=== PATIENT | male | born 1990 | race Caucasian/White ===

== ENCOUNTER → 2021-05-22 12:20 | Outpatient (BNVA) | payer OTHER, SELFPAY | PROVIDERS: Visit Provider Internal Medicine | DX: S06.0X0A Concussion without loss of consciousness, initial encounter (principal); W22.09XA Striking against other stationary object, initial encounter | CPT/HCPCS: 70450; 99203 ==

== ENCOUNTER → 2021-05-24 13:09 | Outpatient (BNVA) | payer OTHER, SELFPAY | PROVIDERS: Visit Provider Internal Medicine | DX: F07.81 Postconcussional syndrome (principal); H53.2 Diplopia; H53.149 Visual discomfort, unspecified | CPT/HCPCS: 99213 ==

== ENCOUNTER → 2021-05-29 08:49 | Outpatient (BNVA) | payer OTHER, SELFPAY | PROVIDERS: Visit Provider Internal Medicine | DX: S06.0X0D Concussion without loss of consciousness, subsequent encounter (principal); X58.XXXD Exposure to other specified factors, subsequent encounter; H53.2 Diplopia; H53.149 Visual discomfort, unspecified | CPT/HCPCS: 99213 ==